=== PATIENT | female | born 2000 | race Two or more races ===

== ENCOUNTER → 2024-03-06 | Outpatient (CLI) | payer OTHER ==
[2024-03-07 09:07] LABS: Mumps IgG Antibody 89.9 AU/mL (Immune >10.9); Varicella Zoster IgG Antibody Non Reactive (Non Reactive)
== END | disposition home or self-care (01) ==
LOC: LAB 11:28
PROVIDERS: ATTEND Registered Nurse
DX: Z01.84 Encounter for antibody response examination (principal)
CPT/HCPCS: 36415; 86706; 86735; 86762; 86765; 86787